=== PATIENT | male | born 1960 | race African-American/Black ===

== ENCOUNTER 2016-05-05 15:06 | Inpatient (IN) | payer OTHER ==
[~2016-05-05] VITALS: Ht 177.8 cm; Wt 67.7 kg
[~2016-05-05 15:06] MED LIST: ALEVE220 M2 PO; AMOXICILLIN500 MG PO; CELEXA20 MG PO; CELEXA40 MG PO; CITALOPRAM HBR20 MG PO; CITALOPRAM HBR40 MG PO; CLEAR EYES REDN30 M1 BOTH EYES; DEPAKOTE ER250 MG PO; DEPAKOTE ER500 MG PO; DEPAKOTE250 MG PO; DEPAKOTE500 MG PO; DESYREL 150 MG150 MG PO; DESYREL100 MG PO; DIVALPROEX SOD250 MG PO; DIVALPROEX SOD500 M1 PO; DUEXIS 800-26.1 EACH PO; FLEXERIL10 MG PO; FOLIC ACID1 MG PO; METFORMIN HCL500 MG PO; METHADONE1 MG/1 ML PO; MOTRIN800 MG PO; MULTIVITAMIN1 EAC2 PO; PAROXETINE HCL20 MG PO; PAXIL20 MG PO; PEN-VEE K,VEET500 MG PO; PREDNISONE20 MG PO; QUETIAPINE FUM200 MG PO; QUETIAPINE FUM300 MG PO; QUETIAPINE FUM400 MG PO; QUETIAPINE FUMA50 MG PO; SEROQUEL200 MG PO; SEROQUEL300 MG PO; SEROQUEL400 MG PO; SUBOXONE 8 MG-1 EAC2 SL; THERAGRAN1 TABLET PO; THIAMINE HCL100 MG PO; TRAZODONE HCL150 MG PO; TRAZODONE HCL50 MG PO; VITAMIN B-1100 MG PO
[2016-05-06 02:57] LABS: HEMATOCRIT 43.3 % (38.0-50.0); MCH 28.3 PG (29.0-34.0); MCHC 33.9 G/DL (30.0-36.0); MCV 83.4 FL (86-99); MEAN PLAT.VOLUME 10.1 uM^3 (9.0-12.4); PLATELET COUNT 210 K/uL (156-360); RBC DIS.WIDTH-CV 12.7 % (11.8-14.6); RBC DIS.WIDTH-SD 38.4 % (39-53); RED BLOOD COUNT 5.19 M/uL (4.00-5.50); WHITE BLOOD COUNT 8.4 K/uL (4.1-10.2)
[2016-05-06 03:06] LABS: CHLORIDE 101 mEq/L (99-109); POTASSIUM 4.5 mEq/L (3.7-5.4); SODIUM 137 mEq/L (136-147)
[2016-05-06 03:08] LABS: GLUCOSE 95 mg/dL (70-99)
[2016-05-06 03:09] LABS: ANION GAP 18 MEQ/L (2-14)
[2016-05-06 03:12] LABS: GFR ESTIMATE (CALCULATED) > 59 mL/min/
[2016-05-06 03:13] LABS: UREA NITROGEN (BUN) 24 mg/dL (9-23)
[2016-05-06 04:04] LABS: ADD MIUA? NO; BILIRUBIN NEGATIVE; BLOOD NEGATIVE; COLOR YELLOW ((YELLOW)); GLUCOSE (STRIP) NEGATIVE; KETONES 20; LEUKOCYTES NEGATIVE; NITRITE NEGATIVE; PROTEIN (STRIP) 30; SPECIFIC GRAVITY 1.023 (1.000-1.030); UCUL ADDED? NO; UROBILINOGEN 0.2 MG/DL (0.2-1.0)
[2016-05-06 04:14] LABS: ADD MEDTOX COMMENT Y; AMPHETAMINE NEGATIVE (500 ng/mL); BARBITURATES NEGATIVE (200 ng/mL); BENZODIAZEPINES NEGATIVE (150 ng/mL); COCAINE PRESUMPTIVE POSITIVE (150 ng/mL); INTERNAL CONTROLS VALID? YES; METHADONE NEGATIVE (200 ng/mL); METHAMPHETAMINE NEGATIVE (500 ng/mL); OPIATES (MORPHINE) PRESUMPTIVE POSITIVE (100 ng/mL); OXYCODONE NEGATIVE (100 ng/mL); PHENCYCLIDINE NEGATIVE (25 ng/mL); PROPOXYPHENE NEGATIVE (300 ng/mL); THC CANNABINOIDS NEGATIVE (50 ng/mL); TRICYCLIC ANTIDEPRESSANTS NEGATIVE (300 ng/mL)
[2016-05-06 06:08] VITALS: BP 121/60
[2016-05-06 06:11] VITALS: BP 126/62
[2016-05-06 15:40] VITALS: BP 106/64
[2016-05-07 07:47] VITALS: BP 86/48
[2016-05-07 16:14] VITALS: BP 111/70
[2016-05-08 08:03] VITALS: BP 101/56
[2016-05-08 15:42] VITALS: BP 121/59
[2016-05-09 07:31] VITALS: BP 110/62
[2016-05-09 15:35] VITALS: BP 120/75
[2016-05-10 07:52] VITALS: BP 110/62
[2016-05-10 15:56] VITALS: BP 124/77
[2016-05-11 08:05] VITALS: BP 105/65
[2016-05-11] MEDS ORDERED: DEPAKOTE250 MG PO (15:37)
[2016-05-11] MEDS ORDERED: QUETIAPINE FUM200 MG PO (15:37)
== END 2016-05-11 16:17 | disposition home or self-care (01) | DRG 885 ==
LOC: EME 15:06 → 1WEST 05-06 02:50 → EDOF 05-06 02:50 → 1WEST 05-06 06:04
PROVIDERS: Emergency Medicine
DX: F25.0 Schizoaffective disorder, bipolar type (principal); F10.99 Alcohol use, unspecified with unspecified alcohol-induced disorder; I10 Essential (primary) hypertension; F15.99 Other stimulant use, unspecified with unspecified stimulant-induced disorder; E11.9 Type 2 diabetes mellitus without complications; J45.909 Unspecified asthma, uncomplicated; Z86.73 Personal history of transient ischemic attack (TIA), and cerebral infarction without residual deficits; Z59.0 Homelessness; F17.210 Nicotine dependence, cigarettes, uncomplicated
CPT/HCPCS: 70450; 80048; 81003; 84999; 85027; 90839; 97150 GO; 97165 GO; 99281; 99285; G0480; Q0177